=== PATIENT | female | born 1970 | race Caucasian/White ===

== ENCOUNTER 2018-05-27 03:02 | Emergency (ER) | payer SELFPAY, OTHER ==
[2018-05-27] MEDS: DIPHENHYDRAMINE 50 MG CAP PO (04:07)
[2018-05-27] MEDS: NICARDipine HCL 30 MG CAPSULE PO (04:07)
== END 2018-05-27 05:31 | disposition home or self-care (01) ==
LOC: E/R 03:02
DX: H02.844 Edema of left upper eyelid (principal); I10 Essential (primary) hypertension; H02.845 Edema of left lower eyelid
CPT/HCPCS: 99283